=== PATIENT | female | born 1990 | race Two or more races ===

== ENCOUNTER 2018-08-09 10:24 | Emergency (ER) | payer MEDICAID, OTHER ==
[~2018-08-09] VITALS: Ht 154.9 cm; Wt 83.9 kg
[~2018-08-09 10:24] MED LIST: NORCO 5-325 TA1 EACH ORAL; ZOFRAN ODT4 MG ORAL
[2018-08-09 10:52] VITALS: BP 138/93
[2018-08-09 11:39] VITALS: BP 138/93
--- NOTE | 2018-08-09 14:31 | Emergency Room Report ---
History of Present Illness General Chief Complaint: General Complaint Source: Patient Present Illness HPI Patient presents with reports that she feels a small mass in her left upper breast area she noticed this several days ago The area is somewhat tender to touch she reports that she has had multiple cysts throughout her body including her right leg left lower leg and back area denies any fevers or chills denies any trauma denies any chest pain Denies any family history of breast cancer Allergies: Coded Allergies: NO KNOWN ALLERGIES (Unverified Allergy, Unknown, 08/09/18) Patient History Past Medical History: see triage record Pertinent Family History: none Last Menstrual Period: Jul, 2018 Reviewed Nursing Documentation: PMH: Agreed; PSxH: Agreed Nursing Documentation-PMH Past Medical History: No Stated History Review of Systems All Other Systems: negative except mentioned in HPI Physical Exam Vital Signs Date Time Temp Pulse Resp B/P (MAP) Pulse Ox O2 Delivery O2 Flow Rate FiO2 08/09/18 10:27 98.5 77 15 138/93 98 Room Air 98.4 Sp02 EP Interpretation: reviewed, normal General Appearance: well appearing, no apparent distress Head: normocephalic, atraumatic Eyes: bilateral eye PERRL, bilateral eye EOMI ENT: hearing grossly normal, normal pharynx, TMs + canals normal, uvula midline Neck: full range of motion, supple, no meningismus, no bony tend Respiratory: lungs clear, normal breath sounds, no rhonchi, no respiratory distress, no retraction, no accessory muscle use Cardiovascular #1: regular rate, rhythm Gastrointestinal: normal bowel sounds, non tender Musculoskeletal: normal inspection Neurologic: alert, oriented x3, responsive Skin: other - Left breast exam with female nurse at bedside , wenceslao, reveals a very well demarcated small palpable nodule approximately 2 x 2 mm right upper quadrant of the left breast approximately 11:00. No erythema no fluctuance, there are no other palpable masses or discharge expressed from the area left. There are no lymph nodes palpated Lymphatic: no adenopathy Medical Decision Making Diagnostic Impression: Primary Impression: breast mass ER Course Given the clinical findings and exam Does palpate to be likely consistent with a small cyst However other palpable masses cannot be fully ruled out Patient is aware that she requires close outpatient follow-up And that today's exam is not comprehensive and does not rule out any malignancy or cancer Last Vital Signs Date Time Temp Pulse Resp B/P (MAP) Pulse Ox O2 Delivery O2 Flow Rate FiO2 08/09/18 11:39 98.4 72 15 138/93 98 Room Air 98.4 Status: unchanged Disposition: HOME, SELF-CARE Condition: Stable Referrals: [facility],REFERRING (PCP) Patient Instructions: Breast Cyst Drainage, Breast Self-Awareness, [id number] , Breast Scan Additional Instructions: The mass palpable on your left breast, requires further primary care physician follow-up. At this time we are unable to differentiate between cancer, cyst or other etiology and close follow-up is recommended Vonnie Avila DO Aug 09, 2018 14:31
== END 2018-08-09 11:40 | disposition home or self-care (01) ==
LOC: EMR 10:55
DX: N63.21 Unspecified lump in the left breast, upper outer quadrant (principal)
CPT/HCPCS: 99282